=== PATIENT | male | born 1970 | race Caucasian/White ===

== ENCOUNTER → 2016-10-17 | Outpatient (CLI) | payer MEDICAID ==
[2016-10-17 11:10] LABS: CH 30.1; CHCM 34.8; HCT 42.9 % (39.0-53.0); HGB 14.4 gm/dL (13.0-17.5); MCH 29.2 pg (25.0-35.0); MCHC 33.6 g/dL (31.0-37.0); MCV 86.9 fL (80.0-100.0); Mean Platelet Volume 6.8; RBC 4.93 m/uL (4.30-5.90); RDW 13.6 % (11.5-15.5)
[2016-10-17 11:22] LABS: ALT 46 U/L (21-72); AST 26 U/L (17-59); Alkaline Phosphatase 64 U/L (38-126); Anion Gap 12 mmol/L; Blood Urea Nitrogen 9 mg/dL (9-20); Carbon Dioxide 29 mmol/L (22-30); Chloride 103 mmol/L (98-107); Cholesterol 157 mg/dL (<200); Glucose 147 mg/dL (74-99); HDL Cholesterol 42 mg/dL (40-60); Non-African American GFR(MDRD) >60 (>60 ml/min/1.73 sqM); Potassium 4.5 mmol/L (3.5-5.1); Sodium 144 mmol/L (137-145); Total Bilirubin 0.6 mg/dL (0.2-1.3); Total Protein 6.9 g/dL (6.3-8.2); Triglycerides 131 mg/dL (<150)
[2016-10-17 14:18] LABS: Hemoglobin A1C 6.5 % (4.2-6.1)
== END | disposition home or self-care (01) ==
LOC: LABWHC1 10:48
PROVIDERS: ATTEND Internal Medicine
DX: E11.65 Type 2 diabetes mellitus with hyperglycemia (principal)
CPT/HCPCS: 36415; 80053; 80061; 83036; 84403; 84439; 84443; 85027

== ENCOUNTER → 2017-03-25 | Outpatient (CLI) | payer MEDICAID ==
[2017-03-25 09:42] LABS: CH 30.8; CHCM 34.9; HCT 44.2 % (39.0-53.0); HDW 2.89; HGB 14.9 gm/dL (13.0-17.5); MCH 29.9 pg (25.0-35.0); MCHC 33.7 g/dL (31.0-37.0); MCV 88.8 fL (80.0-100.0); Mean Platelet Volume 6.5; RBC 4.98 m/uL (4.30-5.90); RDW 13.7 % (11.5-15.5); WBC 8.5 k/uL (3.8-10.6)
[2017-03-25 09:58] LABS: ALT 39 U/L (21-72); AST 21 U/L (17-59); Alkaline Phosphatase 58 U/L (38-126); Anion Gap 12 mmol/L; Blood Urea Nitrogen 17 mg/dL (9-20); Calcium 9.3 mg/dL (8.4-10.2); Carbon Dioxide 24 mmol/L (22-30); Chloride 105 mmol/L (98-107); Cholesterol 178 mg/dL (<200); Glucose 186 mg/dL (74-99); HDL Cholesterol 35 mg/dL (40-60); Non-African American GFR(MDRD) >60 (>60 ml/min/1.73 sqM); Potassium 4.3 mmol/L (3.5-5.1); Sodium 141 mmol/L (137-145); Total Bilirubin 0.6 mg/dL (0.2-1.3); Total Protein 7.2 g/dL (6.3-8.2); Triglycerides 171 mg/dL (<150)
[2017-03-25 13:23] LABS: Hemoglobin A1C 8.3 % (4.2-6.1)
== END | disposition home or self-care (01) ==
LOC: LABWHC1 09:10
PROVIDERS: ATTEND Internal Medicine
DX: E11.9 Type 2 diabetes mellitus without complications (principal); Z13.220 Encounter for screening for lipoid disorders; Z13.29 Encounter for screening for other suspected endocrine disorder
CPT/HCPCS: 36415; 80053; 80061; 83036; 84439; 84443; 85027

== ENCOUNTER → 2018-06-03 | Outpatient (CLI) | payer MEDICAID ==
--- NOTE | 2018-06-03 12:15 | XR ---
EXAMINATION TYPE: XR chest 2V DATE OF EXAM: 06/03/2018 COMPARISON: NONE HISTORY: Left anterior chest pain TECHNIQUE: Frontal and lateral views of the chest are obtained. FINDINGS: There is no focal air space opacity, pleural effusion, or pneumothorax seen. The cardiac silhouette size is upper limits of normal. The osseous structures are intact. IMPRESSION: No acute process identified.
== END | disposition home or self-care (01) ==
LOC: RADXRYALE 11:47
PROVIDERS: ATTEND Physician Assistant Medical
DX: R07.9 Chest pain, unspecified (principal)
CPT/HCPCS: 71046

== ENCOUNTER → 2018-09-09 | Outpatient (CLI) | payer MEDICAID ==
--- NOTE | 2018-09-09 13:19 | US ---
EXAMINATION TYPE: US scrotum with doppler. Grayscale and color Doppler Duplex imaging performed of t [place] scrotum. DATE OF EXAM: 09/09/2018 COMPARISON: NONE CLINICAL HISTORY: Disorder of male genital organs N50.9. Left testicular palpable- noticed it saturday and states it has increased in size and has become harder. No injury. Vasectomy january 2016. EXAM MEASUREMENTS: TESTICLES: Right Testicle: 4.6 x 3.2 x 2.8 cm Left Testicle: 3.7 x 3.5 x 2.6 cm EPIDIDYMIS HEAD: Right Epididymis: 1.0 x 0.8 x 0.7 cm Left Epididymis: 1.2 x 1.1 x 0.8 cm Doppler performed to assess for testicular vascularity; good bilateral color flow and waveforms are s een. There is no evidence of testicular torsion. Presence of hydroceles: small bilaterally Presence of varicoceles: lateral to left testicle, valsalva performed Area of palpable targeted- lateral to left testicle and extra scrotal in location Nonvascular irregu lar shaped heterogenous lesion seen - 2.3 x 1.5 x 1.3 cm. There is associated skin thickening. The fi nding is of uncertain etiology and may reflect infected sebaceous cyst with the associated cellulitis . Correlate clinically. Short-term follow-up may be of value. IMPRESSION: 1. No intratesticular lesion identified. 2. Extratesticular extra scrotal lesion to the left of midline with skin thickening may reflect an in fected sebaceous cyst with cellulitis. Correlate clinically and consider short-term progress study.
== END | disposition home or self-care (01) ==
LOC: RADUSWWP 12:00
PROVIDERS: ATTEND Family Medicine
DX: N50.89 Other specified disorders of the male genital organs (principal)
CPT/HCPCS: 76870; 93975

== ENCOUNTER 2018-09-11 09:23 | Emergency (ER) | payer MEDICAID ==
[2018-09-11] MEDS ORDERED: SODIUM CHLORIDE 0.9% 1,000 ML IV ONE (10:23)
[2018-09-11] MEDS ORDERED: PIPERACILLIN-TAZOBACTAM 3.375 GM in SODIUM CHLORIDE 0.9% 100 ML IVPB STA (10:25)
[2018-09-11] MEDS ORDERED: MORPHINE SULFATE 4 MG/ML SYRINGE IVP STA (10:25)
[2018-09-11] MEDS ORDERED: KETOROLAC 30 MG/ML 1 ML VIAL IVP STA (10:25)
[2018-09-11] MEDS ORDERED: SODIUM CHLORIDE 0.9% 1,000 ML IV SCH (10:30)
--- NOTE | 2018-09-11 11:12 | ED ---
Skin/Abscess/FB HPI - General Chief complaint: Skin/Abscess/Foreign Body Stated complaint: cyst-sent by Time Seen by Provider: 09/11/18 10:04 Source: patient, RN notes reviewed, old records reviewed Mode of arrival: ambulatory - History of Present Illness Initial comments: Patient is a 48-year-old male who presents emergency murmurs today with chief complaint of left testicular pain and swelling. Patient reports that he was sinus with a scrotal abscess and started on Levaquin by PCP 2 days ago. He reports that after 2 days of antibiotics his pain is persisting and becoming worse. Patient states he's had fevers and chills. He reports that he is a diabetic. She reports that he did have a vasectomy by Dr. Ott. He states that he did have some dysuria today. Patient states that there is no drainage of the abscess. He reports that he believes the area is becoming enlarged and worse. She reports pain with ambulation. - Related Data Home Medications Medication Instructions Recorded Confirmed Atorvastatin Calcium [Lipitor] 40 mg PO DAILY 09/11/18 09/11/18 Levofloxacin [Levaquin] 500 mg PO DAILY 09/11/18 09/11/18 Omeprazole 20 mg PO HS 09/11/18 09/11/18 Tadalafil [Cialis] 5 mg PO HS 09/11/18 09/11/18 metFORMIN HCL 1,000 mg PO BID 09/11/18 09/11/18 Previous Rx's Medication Instructions Recorded Acetaminophen-Codeine 300-30mg 1 tab PO Q4H PRN 3 Days #18 tablet 09/11/18 [Tylenol w/codeine #3] Sulfamethoxazole/Trimethoprim 2 each PO BID #40 tablet 09/11/18 [Bactrim DS 800-160 mg] Allergies Allergy/AdvReac Type Severity Reaction Status Date / Time No Known Allergies Allergy Verified 09/11/18 10:09 Review of Systems ROS Statement: Those systems with pertinent positive or pertinent negative responses have been documented in the HPI. ROS Other: All systems not noted in ROS Statement are negative. Past Medical History Past Medical History: Diabetes Mellitus History of Any Multi-Drug Resistant Organisms: None Reported Additional Past Surgical History / Comment(s): Vasectomy 2016 Past Psychological History: No Psychological Hx Reported Smoking Status: Current every day smoker Past Alcohol Use History: None Reported Past Drug Use History: None Reported General Exam - General Exam Comments Initial Comments: Patient's 48-year-old male. Alert and oriented. Patient appears in no significant distress. General appearance: alert, in no apparent distress Head exam: Present: atraumatic, normocephalic, normal inspection Eye exam: Present: normal appearance, PERRL, EOMI. Absent: scleral icterus, conjunctival injection, periorbital swelling ENT exam: Present: normal exam, mucous membranes moist Neck exam: Present: normal inspection. Absent: tenderness, meningismus, lymphadenopathy Respiratory exam: Present: normal lung sounds bilaterally. Absent: respiratory distress, wheezes, rales, rhonchi, stridor Cardiovascular Exam: Present: regular rate, normal rhythm, normal heart sounds. Absent: systolic murmur, diastolic murmur, rubs, gallop, clicks GI/Abdominal exam: Present: soft, normal bowel sounds. Absent: distended, tenderness, guarding, rebound, rigid exam: Present: testicular tenderness (Patient has left testicular tenderness , and swelling noted. There appears to be a 4 cm x 3 cm deep abscess. No superficial pustule at this time. ), scrotal swelling, circumcision. Absent: normal inspection, urethral discharge, vertical testicular lie Extremities exam: Present: normal inspection, full ROM, normal capillary refill. Absent: tenderness, pedal edema, joint swelling, calf tenderness Back exam: Present: normal inspection Neurological exam: Present: alert, oriented X3, CN II-XII intact Psychiatric exam: Present: normal affect, normal mood Skin exam: Present: warm, dry, intact, normal color. Absent: rash Course Vital Signs 09/11/18 09/11/18 09:33 12:32 Temperature 98 F 98 F Pulse Rate 104 H 80 Respiratory 18 18 Rate Blood Pressure 135/83 131/85 O2 Sat by Pulse 99 98 Oximetry Medical Decision Making - Medical Decision Making Patient is a 48-year-old male presents to the emergency department today which equally of left-sided scrotal swelling. Worse for the past 4 days. Patient at this time has normal white blood cell count. Normal lactic acid. No fever at this time dictated Tylenol. This time Patient stating that he felt outpatient treatment with by mouth Levaquin. At this time he did have a CT. There is no evidence of necrotizing infection. No air within the scrotum. Case discussed Dr. BOWIE. Dr. Hwang discussed case with Dr. Kuo the on-call urologist. He recommended that he could follow-up with him in the outpatient for incision and drainage of 4:00 today. Patient agrees to this. Patient will be discharged with a dose of [place] Tylenol 3 starter pack. Discussed that he should follow- up on 4:[address] Kuo's office. - Lab Data Result diagrams: 09/11/18 10:34 09/11/18 10:34 Lab Results 09/11/18 09/11/18 09/11/18 Range/Units 10:34 10:34 10:34 WBC 8.7 (3.8-10.6) k/uL RBC 5.39 (4.30-5.90) m/uL Hgb 15.5 (13.0-17.5) gm/dL Hct 45.6 (39.0-53.0) % MCV 84.6 (80.0-100.0) fL MCH 28.7 (25.0-35.0) pg MCHC 33.9 (31.0-37.0) g/dL RDW 13.4 (11.5-15.5) % Plt Count 198 (150-450) k/uL Neutrophils % 80 % Lymphocytes % 12 % Monocytes % 5 % Eosinophils % 2 % Basophils % 0 % Neutrophils # 7.0 (1.3-7.7) k/uL Lymphocytes # 1.0 (1.0-4.8) k/uL Monocytes # 0.4 (0-1.0) k/uL Eosinophils # 0.2 (0-0.7) k/uL Basophils # 0.0 (0-0.2) k/uL Sodium 136 L (137-145) mmol/L Potassium 4.4 (3.5-5.1) mmol/L Chloride 99 (98-107) mmol/L Carbon Dioxide 26 (22-30) mmol/L Anion Gap 11 mmol/L BUN 11 (9-20) mg/dL Creatinine 0.79 (0.66-1.25) mg/dL Est GFR (CKD-EPI)AfAm >90 (>60 ml/min/1.73 sqM) Est GFR (CKD-EPI)NonAf >90 (>60 ml/min/1.73 sqM) Glucose 331 H (74-99) mg/dL Plasma Lactic Acid Amol 1.3 (0.7-2.0) mmol/L Calcium 9.2 (8.4-10.2) mg/dL Urine Color Urine Appearance (Clear) Urine pH (5.0-8.0) Ur Specific [place] (1.001-1.035) Urine Protein (Negative) Urine Glucose (UA) (Negative) Urine Ketones (Negative) Urine Blood (Negative) Urine Nitrite (Negative) Urine Bilirubin (Negative) Urine Urobilinogen (<2.0) mg/dL Ur Leukocyte Esterase (Negative) 09/11/18 Range/Units 11:00 WBC (3.8-10.6) k/uL RBC (4.30-5.90) m/uL Hgb (13.0-17.5) gm/dL Hct (39.0-53.0) % MCV (80.0-100.0) fL MCH (25.0-35.0) pg MCHC (31.0-37.0) g/dL RDW (11.5-15.5) % Plt Count (150-450) k/uL Neutrophils % % Lymphocytes % % Monocytes % % Eosinophils % % Basophils % % Neutrophils # (1.3-7.7) k/uL Lymphocytes # (1.0-4.8) k/uL Monocytes # (0-1.0) k/uL Eosinophils # (0-0.7) k/uL Basophils # (0-0.2) k/uL Sodium (137-145) mmol/L Potassium (3.5-5.1) mmol/L Chloride (98-107) mmol/L Carbon Dioxide (22-30) mmol/L Anion Gap mmol/L BUN (9-20) mg/dL Creatinine (0.66-1.25) mg/dL Est GFR (CKD-EPI)AfAm (>60 ml/min/1.73 sqM) Est GFR (CKD-EPI)NonAf (>60 ml/min/1.73 sqM) Glucose (74-99) mg/dL Plasma Lactic Acid Amol (0.7-2.0) mmol/L Calcium (8.4-10.2) mg/dL Urine Color Yellow Urine Appearance Clear (Clear) Urine pH 6.0 (5.0-8.0) Ur Specific [place] 1.016 (1.001-1.035) Urine Protein Negative (Negative) Urine Glucose (UA) 4+ H (Negative) Urine Ketones 1+ H (Negative) Urine Blood Negative (Negative) Urine Nitrite Negative (Negative) Urine Bilirubin Negative (Negative) Urine Urobilinogen <2.0 (<2.0) mg/dL Ur Leukocyte Esterase Negative (Negative) - Radiology Data Radiology results: report reviewed No peritoneal subcutaneous or intrapelvic air suggesting necrotic fasciitis. Partial visual scrotal wall thickening and next or testicular fluid collection corresponding with suspected left scrotal abscess that is better evaluated with ultrasound. Mildly enlarged left superficial and when the lymph node is likely reactive. Disposition Clinical Impression: Scrotal abscess, History of diabetes mellitus Disposition: HOME SELF-CARE Condition: Stable Instructions: Abscess (ED) Additional Instructions: Patient advised to go to Dr. Brizuela office at 4:00. Patient states the medication as prescribed. Return to emergency department if any alarming signs or symptoms occur. Prescriptions: Acetaminophen-Codeine 300-30mg [Tylenol w/codeine #3] 1 tab PO Q4H PRN 3 Days # 18 tablet PRN Reason: Pain Sulfamethoxazole/Trimethoprim [Bactrim DS 800-160 mg] 2 each PO BID #40 tablet Is patient prescribed a controlled substance at d/c from ED?: Yes When asked, does pt state using other controlled substances?: No If prescribed controlled substance>3 days was MAPS reviewed?: Prescribed <3 Days If opioid is for acute pain is fill amount 7 days or less?: Yes If Rx opioid, was Start Talking consent form obtained?: Yes Referrals: Lopez Garay DO [Primary Care Provider] - 1-2 days Alejandro Jansen MD [STAFF PHYSICIAN] - 1-2 days Time of Disposition: 13:00
[2018-09-11 11:22] LABS: Basophils % (A) 0 %; Eosinophils # (A) 0.2 k/uL (0-0.7); Eosinophils % (A) 2 %; HCT 45.6 % (39.0-53.0); HGB 15.5 gm/dL (13.0-17.5); Lymphocytes % (A) 12 %; MCH 28.7 pg (25.0-35.0); MCHC 33.9 g/dL (31.0-37.0); MCV 84.6 fL (80.0-100.0); Mean Platelet Volume 6.1; Monocytes # (A) 0.4 k/uL (0-1.0); Monocytes % (A) 5 %; Neutrophils % (A) 80 %; Platelet Count 198 k/uL (150-450); RBC 5.39 m/uL (4.30-5.90); RDW 13.4 % (11.5-15.5); WBC 8.7 k/uL (3.8-10.6)
[2018-09-11 11:24] LABS: Appearance,Urine Clear (Clear); Bilirubin,Urine Negative (Negative); Blood,Urine Negative (Negative); Color,Urine Yellow; Glucose,Urine (UA) 4+ (Negative); Ketones,Urine 1+ (Negative); Leukocyte Esterase,Urine Negative (Negative); Nitrite,Urine Negative (Negative); Protein,Urine Negative (Negative); Specific Gravity,Urine 1.016 (1.001-1.035); Urobilinogen,Urine <2.0 mg/dL (<2.0)
[2018-09-11 11:25] LABS: Anion Gap 11 mmol/L; Blood Urea Nitrogen 11 mg/dL (9-20); Calcium 9.2 mg/dL (8.4-10.2); Carbon Dioxide 26 mmol/L (22-30); Chloride 99 mmol/L (98-107); Glucose 331 mg/dL (74-99); Potassium 4.4 mmol/L (3.5-5.1); Sodium 136 mmol/L (137-145)
--- NOTE | 2018-09-11 12:26 | CT ---
EXAMINATION TYPE: CT pelvis w con DATE OF EXAM: 09/11/2018 COMPARISON: Scrotal ultrasound dated 09/09/2018 HISTORY: Scrotal abscess CT DLP: 687.9 mGycm Automated exposure control for dose reduction was used. CONTRAST: Performed with IV Contrast, patient injected with 100 ml mL of Isovue 300. FINDINGS: Bowel is nondilated. Visualized portions of the inferior liver, spleen, and kidneys are unremarkable. Appendix is air-filled and within normal limits. Osseous structures appear intact. Few nonenlarged p eriaortic lymph nodes are seen. Mild atherosclerosis is present of the abdominal aorta and its branch es. There is a mildly enlarged 1.1 cm short axis left superficial inguinal lymph node. No air is seen within the peritoneum or pelvis. Prostate gland is heterogenous but nonenlarged. Skin thickening of the scrotum is seen with partial visualization of an extratesticular fluid collection w ith rim enhancement representing the known abscess. Internal fluid component on image 71 measures geno roximately 2.6 cm in anterior posterior dimension. IMPRESSION: 1. NO PERITONEAL, SUBCUTANEOUS OR INTRAPELVIC AIR TO SUGGEST NECROTIZING FASCIITIS. 2. PARTIALLY VISUALIZED SCROTAL WALL THICKENING AND EXTRATESTICULAR FLUID COLLECTION CORRESPONDING TO THE SUSPECTED LEFT SCROTAL ABSCESS THAT IS BETTER EVALUATED WITH ULTRASOUND. 3. MILDLY ENLARGED SOLITARY LEFT SUPERFICIAL INGUINAL LYMPH NODE IS LIKELY REACTIVE.
[2018-09-11] MEDS ORDERED: ACET/COD 300 MG/30 MG STARTER PACK 6 TAB BTL PO STA (13:05)
[2018-09-11 14:26] VITALS: BP 123/73; PULSE 70; RESP 16; TEMP 98.3
== END 2018-09-11 14:26 | disposition home or self-care (01) ==
LOC: EC 09:23
DX: N49.2 Inflammatory disorders of scrotum (principal); E11.9 Type 2 diabetes mellitus without complications; F17.200 Nicotine dependence, unspecified, uncomplicated; Z79.84 Long term (current) use of oral hypoglycemic drugs; Z79.899 Other long term (current) drug therapy; Z98.52 Vasectomy status
CPT/HCPCS: 36415; 72193; 80048; 81003; 83605; 85025; 87040; 96365; 96366; 96375; 99284

== ENCOUNTER 2019-09-24 17:29 | Inpatient (IN) | payer MEDICAID ==
[2019-09-24] MEDS ORDERED: ONDANSETRON 4 MG/2 ML VIAL IVP STA (18:00)
[2019-09-24] MEDS ORDERED: PANTOPRAZOLE 40 MG/10 ML VIAL IVP STA (18:00)
[2019-09-24] MEDS ORDERED: SODIUM CHLORIDE 0.9% 1,000 ML IV STA (18:00)
[2019-09-24 18:49] LABS: Basophils % (A) 0 %; Eosinophils # (A) 0.1 k/uL (0-0.7); Eosinophils % (A) 2 %; HCT 45.1 % (39.0-53.0); HGB 15.6 gm/dL (13.0-17.5); Lymphocytes # (A) 1.2 k/uL (1.0-4.8); Lymphocytes % (A) 15 %; MCHC 34.7 g/dL (31.0-37.0); MCV 83.5 fL (80.0-100.0); Mean Platelet Volume 6.6; Monocytes # (A) 0.4 k/uL (0-1.0); Monocytes % (A) 5 %; Neutrophils # (A) 6.2 k/uL (1.3-7.7); Neutrophils % (A) 77 %; Platelet Count 203 k/uL (150-450); RDW 13.5 % (11.5-15.5); WBC 8.1 k/uL (3.8-10.6)
[2019-09-24 18:54] LABS: INR 0.9 (<1.2); Partial Thromboplastin Time 23.9 sec (22.0-30.0); Prothrombin Time 9.9 sec (9.0-12.0)
--- NOTE | 2019-09-24 18:54 | ED ---
Abdominal Pain HPI - General Source: patient Mode of arrival: ambulatory Limitations: no limitations <Nelli Contreras - Last Filed: 09/24/19 18:51> <Jaylan Mcadams - Last Filed: 09/24/19 22:21> - General Chief Complaint: Abdominal Pain Stated Complaint: Abd pain Time Seen by Provider: 09/24/19 17:43 - History of Present Illness Initial Comments: Patient is a 49-year-old male, with past medical history of diabetes and hypertension, presenting to the emergency department complaints of abdominal pain since yesterday. Patient describes the pain as achy, pressure in the mid abdomen, left side of abdomen. Patient does admit to mild nausea, no vomiting, no diarrhea. Patient denies previous abdominal surgeries. Patient had a bowel movement this morning and was normal. Patient states the pain has been increasing over today so decided to come in. Patient admits when he lays down and the pain improves. Patient states when he was up and working today the pain intensified. Patient also has been belching a lot today. Patient has not tried to take anything for this. Patient has no other complaints at this time. Upon arrival to the ER, his vital signs are stable. (Nelli Contreras) - Related Data Home Medications Medication Instructions Recorded Confirmed Atorvastatin Calcium [Lipitor] 40 mg PO DAILY 09/11/18 09/11/18 Levofloxacin [Levaquin] 500 mg PO DAILY 09/11/18 09/11/18 Omeprazole 20 mg PO HS 09/11/18 09/11/18 Tadalafil [Cialis] 5 mg PO HS 09/11/18 09/11/18 metFORMIN HCL 1,000 mg PO BID 09/11/18 09/11/18 Previous Rx's Medication Instructions Recorded Acetaminophen-Codeine 300-30mg 1 tab PO Q4H PRN 3 Days #18 tablet 09/11/18 [Tylenol w/codeine #3] Sulfamethoxazole/Trimethoprim 2 each PO BID #40 tablet 09/11/18 [Bactrim DS 800-160 mg] Allergies Allergy/AdvReac Type Severity Reaction Status Date / Time No Known Allergies Allergy Verified 09/24/19 17:36 Review of Systems ROS Other: All systems not noted in ROS Statement are negative. <Nelli Contreras - Last Filed: 09/24/19 18:51> ROS Other: All systems not noted in ROS Statement are negative. <Jaylan Mcadams - Last Filed: 09/24/19 22:21> ROS Statement: Those systems with pertinent positive or pertinent negative responses have been documented in the HPI. Past Medical History Past Medical History: Diabetes Mellitus History of Any Multi-Drug Resistant Organisms: None Reported Additional Past Surgical History / Comment(s): Vasectomy 2016 Past Psychological History: No Psychological Hx Reported Smoking Status: Current every day smoker Past Alcohol Use History: None Reported Past Drug Use History: None Reported <Nelli Contreras - Last Filed: 09/24/19 18:51> General Exam Limitations: no limitations <Nelli Contreras - Last Filed: 09/24/19 18:51> - General Exam Comments Initial Comments: GENERAL: Well-appearing, well-nourished and in no acute distress. HEAD: Atraumatic, normocephalic. EYES: Pupils equal round and reactive to light, extraocular movements intact, sclera anicteric, conjunctiva are normal. ENT: TMs normal, nares patent, oropharynx clear without exudates. Moist mucous m embranes. NECK: Normal range of motion, supple without lymphadenopathy or JVD. LUNGS: Breath sounds clear to auscultation bilaterally and equal. No wheezes rales or rhonchi. HEART: Regular rate and rhythm without murmurs, rubs or gallops. ABDOMEN: Tender to palpation in the epigastric and left side of abdomen. Soft, normoactive bowel sounds. No guarding, no rebound. No masses appreciated. : Deferred EXTREMITIES: Normal range of motion, no pitting or edema. No clubbing or cyanosis. NEUROLOGICAL: Normal speech, normal gait. PSYCH: Normal mood, normal affect. SKIN: Warm, Dry, normal turgor, no rashes or lesions noted. (Nelli Contreras) Course <Jaylan Mcadams - Last Filed: 09/24/19 22:21> Vital Signs 09/24/19 09/24/19 09/24/19 17:34 17:36 17:44 Temperature 97.6 F Pulse Rate 99 Respiratory 20 20 Rate Blood Pressure 137/85 137/85 O2 Sat by Pulse 98 98 95 Oximetry 09/24/19 09/24/19 09/24/19 17:50 18:00 18:10 Temperature Pulse Rate Respiratory Rate Blood Pressure 125/88 125/88 104/81 O2 Sat by Pulse 95 95 96 Oximetry 09/24/19 09/24/19 09/24/19 18:20 18:30 18:36 Temperature Pulse Rate Respiratory 20 Rate Blood Pressure 104/81 104/81 O2 Sat by Pulse 96 96 98 Oximetry 09/24/19 09/24/19 18:40 18:50 Temperature Pulse Rate Respiratory Rate Blood Pressure 119/85 119/85 O2 Sat by Pulse 97 95 Oximetry - Reevaluation(s) Reevaluation #1: 09/24/19 22:20 Medical record is physical (Jaylan Mcadams) Reevaluation #2: 09/24/19 22:20 Patient with known appetite not eating no bowel movements here and not passing far (Jaylan Mcadams) - Consultations Consultation #1: Spoke with Dr. Rome who will admit patient (Jaylan Mcadams) Medical Decision Making - Lab Data Result diagrams: 09/24/19 18:19 <Nelli Contreras - Last Filed: 09/24/19 18:51> - Lab Data Result diagrams: 09/24/19 18:19 09/24/19 18:19 - Radiology Data Radiology results: report reviewed (CT pelvis is positive for small bowel obstruction), image reviewed <Jaylan Mcadams - Last Filed: 09/24/19 22:21> - Medical Decision Making Patient is a 49-year-old male presenting with mid and left sided abdominal pain since yesterday. Vital signs are stable. (Nelli Contreras) Auty [facility] male date ER for will be admitted for ileus versus small bowel structure. (Jaylan Mcadams) - Lab Data Lab Results 09/24/19 09/24/19 09/24/19 Range/Units 18:19 18:19 18:19 WBC 8.1 (3.8-10.6) k/uL RBC 5.40 (4.30-5.90) m/uL Hgb 15.6 (13.0-17.5) gm/dL Hct 45.1 (39.0-53.0) % MCV 83.5 (80.0-100.0) fL MCH 29.0 (25.0-35.0) pg MCHC 34.7 (31.0-37.0) g/dL RDW 13.5 (11.5-15.5) % Plt Count 203 (150-450) k/uL Neutrophils % 77 % Lymphocytes % 15 % Monocytes % 5 % Eosinophils % 2 % Basophils % 0 % Neutrophils # 6.2 (1.3-7.7) k/uL Lymphocytes # 1.2 (1.0-4.8) k/uL Monocytes # 0.4 (0-1.0) k/uL Eosinophils # 0.1 (0-0.7) k/uL Basophils # 0.0 (0-0.2) k/uL PT 9.9 (9.0-12.0) sec INR 0.9 (<1.2) APTT 23.9 (22.0-30.0) sec Sodium 138 (137-145) mmol/L Potassium 4.7 (3.5-5.1) mmol/L Chloride 102 (98-107) mmol/L Carbon Dioxide 25 (22-30) mmol/L Anion Gap 11 mmol/L BUN 13 (9-20) mg/dL Creatinine 0.99 (0.66-1.25) mg/dL Est GFR (CKD-EPI)AfAm >90 (>60 ml/min/1.73 sqM) Est GFR (CKD-EPI)NonAf >90 (>60 ml/min/1.73 sqM) Glucose 202 H (74-99) mg/dL Calcium 10.0 (8.4-10.2) mg/dL Total Bilirubin 0.8 (0.2-1.3) mg/dL AST 26 (17-59) U/L ALT 35 (4-49) U/L Alkaline Phosphatase 80 (38-126) U/L Total Protein 7.9 (6.3-8.2) g/dL Albumin 4.9 (3.5-5.0) g/dL Amylase 76 (30-110) U/L Lipase 194 (23-300) U/L Disposition <Nelli Contreras - Last Filed: 09/24/19 18:51> Is patient prescribed a controlled substance at d/c from ED?: No <Jaylan Mcadams - Last Filed: 09/24/19 22:21> Clinical Impression: Abdominal pain, Small bowel obstruction Disposition: ADMITTED IP TO THIS HOSP Condition: Fair Referrals: Lopez Garay DO [Primary Care Provider] - 1-2 days
[2019-09-24 18:59] LABS: ALT 35 U/L (4-49); AST 26 U/L (17-59); African American GFR (CKD) >90 (>60 ml/min/1.73 sqM); Albumin 4.9 g/dL (3.5-5.0); Alkaline Phosphatase 80 U/L (38-126); Amylase 76 U/L (30-110); Anion Gap 11 mmol/L; Blood Urea Nitrogen 13 mg/dL (9-20); Carbon Dioxide 25 mmol/L (22-30); Chloride 102 mmol/L (98-107); Glucose 202 mg/dL (74-99); Non-African American GFR(CKD) >90 (>60 ml/min/1.73 sqM); Potassium 4.7 mmol/L (3.5-5.1); Sodium 138 mmol/L (137-145); Total Bilirubin 0.8 mg/dL (0.2-1.3); Total Protein 7.9 g/dL (6.3-8.2)
--- NOTE | 2019-09-24 20:06 | XR ---
EXAMINATION TYPE: XR KUB DATE OF EXAM: 09/24/2019 COMPARISON: NONE HISTORY: Abdominal pain TECHNIQUE: 2 views upright FINDINGS: There are some intestinal fluid levels. These are predominantly in the small bowel. There i s no sign of free air. Lung bases are clear. There are no pathologic calcifications. There is some ga s down to the rectum. IMPRESSION: Numerous small bowel fluid levels suggestive of ileus or partial mechanical obstruction.
--- NOTE | 2019-09-24 21:43 | CT ---
EXAMINATION TYPE: CT abdomen pelvis w con DATE OF EXAM: 09/24/2019 COMPARISON: None HISTORY: Abdomen pain, possible bowel obstruction. CT DLP: 1157.2 mGycm Automated exposure control for dose reduction was used. CONTRAST: Performed with IV Contrast, patient injected with 100 mL of Isovue 300. Lung bases are clear. There is no pleural effusion. Heart size is normal. Liver spleen pancreas gallbladder stomach appear normal. Bile ducts are not dilated. There is no adrenal mass. Kidneys show satisfactory contrast opacification. There is no hydronephrosi s. Ureters are not dilated. Delayed images show normal renal excretion. There is no retroperitoneal a denopathy. Bladder distends smoothly. There is no inguinal hernia. There is no free fluid in the pelv is. There are fluid-filled mildly distended loops of small bowel. Small bowel is dilated up to 3.5 cm. Th ere is no mesenteric edema. There is no ascites or free air. Appendix is not definitely seen. There i s no sign of thickened appendix. There is no transition point. Distal ileum is not dilated. Lumbar ve rtebra have normal alignment. Posterior elements are intact. Bony pelvis is intact. IMPRESSION: There are some dilated fluid-filled loops of proximal small bowel suggestive of ileus or partial mech anical obstruction. No transition point identified.
[2019-09-25] MEDS ORDERED: SODIUM CHLORIDE 0.9% 1,000 ML IV ONE (00:02)
[2019-09-25] MEDS ORDERED: ONDANSETRON 4 MG/2 ML VIAL IVP PRN (00:02)
[2019-09-25 01:05] LABS: Appearance,Urine Clear (Clear); Bilirubin,Urine Negative (Negative); Blood,Urine Negative (Negative); Color,Urine Yellow; Glucose,Urine (UA) 4+ (Negative); Ketones,Urine Negative (Negative); Leukocyte Esterase,Urine Negative (Negative); Nitrite,Urine Negative (Negative); Protein,Urine Trace (Negative); Urobilinogen,Urine <2.0 mg/dL (<2.0)
[2019-09-25 01:12] LABS: Specific Gravity,Urine >1.050 (1.001-1.035)
[2019-09-25 07:26] LABS: Glucose,Whole Blood 156 mg/dL (75-99)
[2019-09-25] MEDS: PANTOPRAZOLE 40 MG/10 ML VIAL IVP SCH (07:42)
[2019-09-25 11:17] LABS: Glucose,Whole Blood 135 mg/dL (75-99)
--- NOTE | 2019-09-25 12:44 | P.GSCN ---
<Lorrie Emmanuel A - Last Filed: 09/25/19 12:40> History of Present Illness Consult date: 09/25/19 Reason for Consult: SBO Requesting physician: Jaylan Mcadams History of present illness: CHIEF COMPLAINT: abdominal pain HISTORY OF PRESENT ILLNESS: 49-year-old male who presented to urgent with a chief complaint of abdominal pain. Patient reports he has been having abdominal pain near the umbilicus for the last 2 days that worsened in intensity so he decided to come to the emergency room for evaluation. Patient reports some mild nausea over the past 2 days but no vomiting. He states his nausea has now resolved. He reports having a normal formed bowel movement yesterday morning. He reports a loose bowel movement in the middle the night. He is passing flatus this morning. Patient denies any previous abdominal surgeries. Denies any previous gastrointestinal conditions or family history of GI conditions. He reports he is a type II diabetic and was started on Januvia last week. PAST MEDICAL HISTORY: See list. PAST SURGICAL HISTORY: See list. SOCIAL HISTORY: No illicit drug use. REVIEW OF SYSTEMS: CONSTITUTIONAL: Denies fever or chills. HEENT: Denies blurred vision, vision changes, or eye pain. Denies hemoptysis CARDIOVASCULAR: Denies chest pain or pressure. RESPIRATORY: No shortness of breath. GASTROINTESTINAL: Refer to HPI for pertinent findings HEMATOLOGIC: Denies bleeding disorders. GENITOURINARY: Denies any blood in urine. SKIN: Denies pruitis. Denies rash. PHYSICAL EXAM: VITAL SIGNS: Reviewed. GENERAL: Well-developed in no acute distress. HEENT: No sclera icterus. Extraocular movements grossly intact. Moist buccal mucosa. Head is atraumatic, normocephalic. ABDOMEN: Soft. Nondistended. Nontender. NEUROLOGIC: Alert and oriented. Cranial nerves II through XII grossly intact. LABORATORY DATA: WBC 8.1. Hemoglobin 15.6. Platelet count 203. IMAGING: CT abdomen and pelvis: Small bowel dilated to 3.5 cm. Dilated fluid-filled loops of proximal small bowel suggestive of ileus or partial mechanical structure. No transition point identified. ASSESSMENT: 1. Abdominal pain, possible ileus PLAN: Patient symptoms have completely resolved. Begin clear liquid diet. Advance as tolerated. No surgical intervention recommended. Nurse practitioner note has been reviewed by physician. Signing provider agrees with the documented findings, assessment, and plan of care. Past Medical History Past Medical History: Diabetes Mellitus History of Any Multi-Drug Resistant Organisms: None Reported Additional Past Surgical History / Comment(s): Vasectomy 2016 Past Psychological History: No Psychological Hx Reported Smoking Status: Former smoker Past Alcohol Use History: None Reported Past Drug Use History: None Reported Medications and Allergies Home Medications Medication Instructions Recorded Confirmed Type Atorvastatin Calcium [Lipitor] 40 mg PO DAILY 09/11/18 09/24/19 History Omeprazole 20 mg PO HS 09/11/18 09/24/19 History Tadalafil [Cialis] 5 mg PO HS 09/11/18 09/24/19 History metFORMIN HCL 1,000 mg PO BID 09/11/18 09/24/19 History Empagliflozin [Jardiance] 25 mg PO DAILY 09/24/19 09/24/19 History Insulin Glargine,Hum.rec.anlog 32 units SQ HS 09/24/19 09/24/19 History [Toujeo Solostar] Lisinopril [Zestril] 2.5 mg PO DAILY 09/24/19 09/24/19 History Allergies Allergy/AdvReac Type Severity Reaction Status Date / Time No Known Allergies Allergy Verified 09/24/19 22:42 Surgical - Exam Vital Signs Temp Pulse Resp BP Pulse Ox 97.6 F 99 20 137/85 98 09/24/19 17:34 09/24/19 17:34 09/24/19 17:34 09/24/19 17:34 09/24/19 17:34 Results - Labs 09/24/19 18:19 09/24/19 18:19 Abnormal Lab Results - Last 24 Hours (Table) 09/24/19 09/25/19 09/25/19 Range/Units 18: 00:41 07:15 Glucose 202 H (74-99) mg/dL POC Glucose (mg/dL) 156 H (75-99) mg/dL Ur Specific [place] >1.050 H (1.001-1.035) Urine Protein Trace H (Negative) Urine Glucose (UA) 4+ H (Negative) 09/25/19 Range/Units 11:06 Glucose (74-99) mg/dL POC Glucose (mg/dL) 135 H (75-99) mg/dL Ur Specific [place] (1.001-1.035) Urine Protein (Negative) Urine Glucose (UA) (Negative) Diabetes panel 09/24/19 Range/Units 18:19 Sodium 138 (137-145) mmol/L Potassium 4.7 (3.5-5.1) mmol/L Chloride 102 (98-107) mmol/L Carbon Dioxide 25 (22-30) mmol/L BUN 13 (9-20) mg/dL Creatinine 0.99 (0.66-1.25) mg/dL Glucose 202 H (74-99) mg/dL Calcium 10.0 (8.4-10.2) mg/dL AST 26 (17-59) U/L ALT 35 (4-49) U/L Alkaline Phosphatase 80 (38-126) U/L Total Protein 7.9 (6.3-8.2) g/dL Albumin 4.9 (3.5-5.0) g/dL Calcium panel 09/24/19 Range/Units 18:19 Calcium 10.0 (8.4-10.2) mg/dL Albumin 4.9 (3.5-5.0) g/dL Pituitary panel 09/24/19 Range/Units 18:19 Sodium 138 (137-145) mmol/L Potassium 4.7 (3.5-5.1) mmol/L Chloride 102 (98-107) mmol/L Carbon Dioxide 25 (22-30) mmol/L BUN 13 (9-20) mg/dL Creatinine 0.99 (0.66-1.25) mg/dL Glucose 202 H (74-99) mg/dL Calcium 10.0 (8.4-10.2) mg/dL Adrenal panel 09/24/19 Range/Units 18:19 Sodium 138 (137-145) mmol/L Potassium 4.7 (3.5-5.1) mmol/L Chloride 102 (98-107) mmol/L Carbon Dioxide 25 (22-30) mmol/L BUN 13 (9-20) mg/dL Creatinine 0.99 (0.66-1.25) mg/dL Glucose 202 H (74-99) mg/dL Calcium 10.0 (8.4-10.2) mg/dL Total Bilirubin 0.8 (0.2-1.3) mg/dL AST 26 (17-59) U/L ALT 35 (4-49) U/L Alkaline Phosphatase 80 (38-126) U/L Total Protein 7.9 (6.3-8.2) g/dL Albumin 4.9 (3.5-5.0) g/dL <Patrick Alston - Last Filed: 09/25/19 13:39> History of Present Illness History of present illness: as above. Patient with enteritis. Doing better at this time. Advance to full liquids. Will follow with you. Surgical - Exam Vital Signs Temp Pulse Resp BP Pulse Ox 97.6 F 99 20 137/85 98 09/24/19 17:34 09/24/19 17:34 09/24/19 17:34 09/24/19 17:34 09/24/19 17:34 Results - Labs 09/24/19 18:19 09/24/19 18:19 Abnormal Lab Results - Last 24 Hours (Table) 09/24/19 09/25/19 09/25/19 Range/Units 18:19 00:41 07:15 Glucose 202 H (74-99) mg/dL POC Glucose (mg/dL) 156 H (75-99) mg/dL Ur Specific [place] >1.050 H (1.001-1.035) Urine Protein Trace H (Negative) Urine Glucose (UA) 4+ H (Negative) 09/25/19 Range/Units 11:06 Glucose (74-99) mg/dL POC Glucose (mg/dL) 135 H (75-99) mg/dL Ur Specific [place] (1.001-1.035) Urine Protein (Negative) Urine Glucose (UA) (Negative) Diabetes panel 09/24/19 Range/Units 18:19 Sodium 138 (137-145) mmol/L Potassium 4.7 (3.5-5.1) mmol/L Chloride 102 (98-107) mmol/L Carbon Dioxide 25 (22-30) mmol/L BUN 13 (9-20) mg/dL Creatinine 0.99 (0.66-1.25) mg/dL Glucose 202 H (74-99) mg/dL Calcium 10.0 (8.4-10.2) mg/dL AST 26 (17-59) U/L ALT 35 (4-49) U/L Alkaline Phosphatase 80 (38-126) U/L Total Protein 7.9 (6.3-8.2) g/dL Albumin 4.9 (3.5-5.0) g/dL Calcium panel 09/24/19 Range/Units 18:19 Calcium 10.0 (8.4-10.2) mg/dL Albumin 4.9 (3.5-5.0) g/dL Pituitary panel 09/24/19 Range/Units 18:19 Sodium 138 (137-145) mmol/L Potassium 4.7 (3.5-5.1) mmol/L Chloride 102 (98-107) mmol/L Carbon Dioxide 25 (22-30) mmol/L BUN 13 (9-20) mg/dL Creatinine 0.99 (0.66-1.25) mg/dL Glucose 202 H (74-99) mg/dL Calcium 10.0 (8.4-10.2) mg/dL Adrenal panel 09/24/19 Range/Units 18:19 Sodium 138 (137-145) mmol/L Potassium 4.7 (3.5-5.1) mmol/L Chloride 102 (98-107) mmol/L Carbon Dioxide 25 (22-30) mmol/L BUN 13 (9-20) mg/dL Creatinine 0.99 (0.66-1.25) mg/dL Glucose 202 H (74-99) mg/dL Calcium 10.0 (8.4-10.2) mg/dL Total Bilirubin 0.8 (0.2-1.3) mg/dL AST 26 (17-59) U/L ALT 35 (4-49) U/L Alkaline Phosphatase 80 (38-126) U/L Total Protein 7.9 (6.3-8.2) g/dL Albumin 4.9 (3.5-5.0) g/dL
--- NOTE | 2019-09-25 16:19 | P.HPIM ---
History of Present Illness H&P Date: 09/25/19 Chief Complaint: Abdominal pain and distention 49-year-old male, with past medical history of diabetes and hypertension, presenting to the emergency department complaints of abdominal pain since yesterday. Patient describes the pain as achy, pressure in the mid abdomen, left side of abdomen. Patient does admit to mild nausea, no vomiting, no diarrhea. Patient denies previous abdominal surgeries. Patient had a bowel movement this morning and was normal. Patient states the pain has been increasing over today so decided to come in. Patient admits when he lays down and the pain improves. Patient states when he was up and working today the pain intensified. Patient also has been belching a lot today. Patient has not tried to take anything for this. Patient has no other complaints at this time. Upon arrival to the ER, his vital signs are stable. Patient's workup in ED with an abdominal x-ray was positive for small bowel obstruction; patient is admitted to the hospital for further evaluation Review of Systems REVIEW OF SYSTEMS: CONSTITUTIONAL: No fever, no malaise, no fatigue. HEENT: No recent visual problems or hearing problems. Denied any sore throat. CARDIOVASCULAR: No chest pain, orthopnea, PND, no palpitations, no syncope. PULMONARY: No shortness of breath, no cough, no hemoptysis. GASTROINTESTINAL: No diarrhea, no nausea, no vomiting, no abdominal pain. NEUROLOGICAL: No headaches, no weakness, no numbness. HEMATOLOGICAL: Denies any bleeding or petechiae. GENITOURINARY: Denies any burning micturition, frequency, or urgency. MUSCULOSKELETAL/RHEUMATOLOGICAL: Denies any joint pain, swelling, or any muscle pain. ENDOCRINE: Denies any polyuria or polydipsia. The rest of the 14-point review of systems is negative. Past Medical History Past Medical History: Diabetes Mellitus History of Any Multi-Drug Resistant Organisms: None Reported Additional Past Surgical History / Comment(s): Vasectomy 2016 Past Psychological History: No Psychological Hx Reported Smoking Status: Former smoker Past Alcohol Use History: None Reported Past Drug Use History: None Reported Medications and Allergies Home Medications Medication Instructions Recorded Confirmed Type Atorvastatin Calcium [Lipitor] 40 mg PO DAILY 09/11/18 09/24/19 History Omeprazole 20 mg PO HS 09/11/18 09/24/19 History Tadalafil [Cialis] 5 mg PO HS 09/11/18 09/24/19 History metFORMIN HCL 1,000 mg PO BID 09/11/18 09/24/19 History Empagliflozin [Jardiance] 25 mg PO DAILY 09/24/19 09/24/19 History Insulin Glargine,Hum.rec.anlog 32 units SQ HS 09/24/19 09/24/19 History [Toujeo Solostar] Lisinopril [Zestril] 2.5 mg PO DAILY 09/24/19 09/24/19 History Allergies Allergy/AdvReac Type Severity Reaction Status Date / Time No Known Allergies Allergy Verified 09/24/19 22:42 Physical Exam Vitals: Vital Signs Temp Pulse Pulse Resp BP BP Pulse Ox 09/25/19 07:00 97.7 F 72 15 104/66 97 09/25/19 04:00 15 09/25/19 00:40 97.6 F 74 15 111/74 96 09/24/19 22:54 97.9 F 76 18 125/86 97 09/24/19 18:50 119/85 95 09/24/19 18:40 119/85 97 09/24/19 18:36 20 98 09/24/19 18:30 104/81 96 09/24/19 18:20 104/81 96 09/24/19 18:10 104/81 96 09/24/19 18:00 125/88 95 09/24/19 17:50 125/88 95 09/24/19 17:44 95 09/24/19 17:36 20 137/85 98 09/24/19 17:34 97.6 F 99 20 137/85 98 Intake and Output 09/24/19 09/25/19 09/25/19 22:59 06:59 14:59 Other: Voiding Method Toilet Weight 90.718 kg 90.718 kg PHYSICAL EXAMINATION: GENERAL: The patient is alert and oriented x3, not in any acute distress. Well developed, well nourished. HEENT: Pupils are round and equally reacting to light. EOMI. No scleral icterus. No conjunctival pallor. Normocephalic, atraumatic. No pharyngeal erythema. No thyromegaly. CARDIOVASCULAR: S1 and S2 present. No murmurs, rubs, or gallops. PULMONARY: Chest is clear to auscultation, no wheezing or crackles. ABDOMEN: Soft, marked epigastric tenderness, moderate distention, normoactive bowel sounds. No palpable organomegaly. MUSCULOSKELETAL: No joint swelling or deformity. EXTREMITIES: No cyanosis, clubbing, or pedal edema. NEUROLOGICAL: Gross neurological examination did not reveal any focal deficits. SKIN: No rashes. Results CBC & Chem 7: 09/24/19 18:19 09/24/19 18:19 Labs: Abnormal Lab Results - Last 24 Hours (Table) 09/24/19 09/25/19 09/25/19 Range/Units 18:19 00:41 07:15 Glucose 202 H (74-99) mg/dL POC Glucose (mg/dL) 156 H (75-99) mg/dL Ur Specific [place] >1.050 H (1.001-1.035) Urine Protein Trace H (Negative) Urine Glucose (UA) 4+ H (Negative) 09/25/19 Range/Units 11:06 Glucose (74-99) mg/dL POC Glucose (mg/dL) 135 H (75-99) mg/dL Ur Specific [place] (1.001-1.035) Urine Protein (Negative) Urine Glucose (UA) (Negative) Thrombosis Risk Factor Assmnt - Choose All That Apply Each Factor Represents 1 point: Age 41-60 years Other Risk Factors: No Other congenital or acquired thrombophilia - If yes, enter type in comment: No Thrombosis Risk Factor Assessment Total Risk Factor Score: 1 Thrombosis Risk Factor Assessment Level: Low Risk Assessment and Plan Assessment: 1. Intractable abdominal pain; possible peptic ulcer disease versus acute gastritis - Patient is started on clear liquid diet and was advanced as tolerated; start patient on IV Protonix 40 mg twice a day; we will monitor closely and possibly start patient on Reglan if no change in her home pain 2. Small bowel obstruction; Gen. surgery is consulted and patient has been started on clear liquid diet; we will recommend serial abdominal exams 3. Hyperglycemia; diabetes mellitus type 1; we will hold off on long-acting insulin along with metformin and Giardia and's; we will monitor Accu-Cheks every before meals and at bedtime with insulin sliding scale till oral intake is established 4. Hyperlipidemia; continue with home statin therapy 5. Hypertension; stable on home dose of Zestril 2.5 mg daily 6. DVT prophylaxis; SCDs CODE STATUS; full code Time with Patient: Greater than 30
[2019-09-25 17:21] LABS: Glucose,Whole Blood 375 mg/dL (75-99)
[2019-09-25] MEDS: INSULIN ASPART (NovoLOG) 100 UNIT/ML VIAL SQ SCH ×2 (18:09→20:39)
[2019-09-25 20:30] LABS: Glucose,Whole Blood 168 mg/dL (75-99)
[2019-09-25] MEDS ORDERED: metFORMIN 500 MG TAB PO SCH (21:00)
[2019-09-25] MEDS ORDERED: INSULIN DETEMIR (LEVEMIR) 100 UNIT/ML SYR SQ SCH (21:00)
[2019-09-26 06:57] LABS: Basophils % (A) 1 %; Eosinophils # (A) 0.1 k/uL (0-0.7); Eosinophils % (A) 4 %; HCT 40.3 % (39.0-53.0); HGB 13.9 gm/dL (13.0-17.5); Lymphocytes # (A) 1.2 k/uL (1.0-4.8); Lymphocytes % (A) 32 %; MCH 28.9 pg (25.0-35.0); MCHC 34.6 g/dL (31.0-37.0); MCV 83.5 fL (80.0-100.0); Mean Platelet Volume 6.8; Monocytes # (A) 0.2 k/uL (0-1.0); Monocytes % (A) 6 %; Neutrophils % (A) 55 %; Platelet Count 197 k/uL (150-450); RBC 4.82 m/uL (4.30-5.90); RDW 13.3 % (11.5-15.5); WBC 3.7 k/uL (3.8-10.6)
[2019-09-26 07:09] LABS: African American GFR (CKD) >90 (>60 ml/min/1.73 sqM); Anion Gap 8 mmol/L; Blood Urea Nitrogen 11 mg/dL (9-20); Calcium 8.6 mg/dL (8.4-10.2); Carbon Dioxide 25 mmol/L (22-30); Chloride 107 mmol/L (98-107); Glucose 138 mg/dL (74-99); Non-African American GFR(CKD) >90 (>60 ml/min/1.73 sqM); Potassium 3.9 mmol/L (3.5-5.1); Sodium 140 mmol/L (137-145)
[2019-09-26 07:19] LABS: Glucose,Whole Blood 139 mg/dL (75-99)
[2019-09-26] MEDS: LISINOPRIL 2.5 MG TAB PO SCH ×2 (07:39→07:47)
[2019-09-26] MEDS: INSULIN ASPART (NovoLOG) 100 UNIT/ML VIAL SQ SCH ×3 (07:39→17:33)
[2019-09-26] MEDS: PANTOPRAZOLE 40 MG/10 ML VIAL IVP SCH (07:45)
[2019-09-26] MEDS ORDERED: ATORVASTATIN 40 MG TAB PO SCH (09:00)
--- NOTE | 2019-09-26 10:34 | P.PN ---
Subjective Progress Note Date: 09/26/19 Principal diagnosis: Abdominal pain Patient was doing better up until yesterday evening when he began expensing pain and bloating once again. Pain is periumbilical. He did have a bowel movement which was loose. Some nausea but no vomiting. White blood cell count 3.7 today. He is afebrile. He has been taking Prilosec daily prior to admission. Objective - Vital Signs Vital signs: Vital Signs Temp 97.8 F 09/26/19 07:00 Pulse 67 09/26/19 07:00 Resp 18 09/26/19 07:00 BP 120/79 09/26/19 07:00 Pulse Ox 90 L 09/26/19 07:00 Intake & Output 09/25/19 09/26/19 09/26/19 18:59 06:59 18:59 Intake Total 1050 1040 236 Balance 1050 1040 236 Intake: Intake, IV Titration 800 Amount Sodium Chloride 0.9% 1, 800 000 ml @ 100 mls/hr IV . Q10H ONE Rx#:[id number] Oral 1050 240 236 Other: Voiding Method Toilet Toilet # Voids 2 1 - Exam Abdomen: Soft, mild distention, mild tenderness, no rebound or guarding - Labs CBC & Chem 7: 09/26/19 06:13 09/26/19 06:13 Labs: Abnormal Lab Results - Last 24 Hours (Table) 09/25/19 09/25/19 09/25/19 Range/Units 11:06 17:09 20:17 WBC (3.8-10.6) k/uL Glucose (74-99) mg/dL POC Glucose (mg/dL) 135 H 375 H 168 H (75-99) mg/dL 09/26/19 09/26/19 09/26/19 Range/Units 06:13 06:13 07:08 WBC 3.7 L (3.8-10.6) k/uL Glucose 138 H (74-99) mg/dL POC Glucose (mg/dL) 139 H (75-99) mg/dL Assessment and Plan (1) Abdominal pain Narrative/Plan: 49-year-old male with mid abdominal discomfort. Suspect enteritis. Check abdominal x-rays today. Repeat labs. Continue low fiber diet. Current Visit: Yes Status: Acute Code(s): R10.9 - UNSPECIFIED ABDOMINAL PAIN SNOMED Code(s): 23397958
--- NOTE | 2019-09-26 11:32 | XR ---
EXAMINATION TYPE: XR abdomen 2V , 3 VIEWS DATE OF EXAM ORDERED: 09/26/2019 HISTORY: Evaluate ileus. COMPARISON: Previous study dated 09/24/2019. FINDINGS: Lung bases are clear. Within the abdomen, the overall appearance is improved. There is no dilated small bowel in the longer . No air-fluid levels are seen. No unusual calcifications are seen. IMPRESSION: MUCH IMPROVED SMALL BOWEL ILEUS.
[2019-09-26 12:34] LABS: Glucose,Whole Blood 225 mg/dL (75-99)
[2019-09-26] MEDS ORDERED: SIMETHICONE 80 MG CHEWABLE PO SCH (13:00)
[2019-09-26 14:18] LABS: Hemoglobin A1C 9.8 % (4.0-6.0)
[2019-09-26 14:48] VITALS: BP 133/83; PULSE 74; RESP 16; TEMP 97.6
[2019-09-26 17:14] LABS: Glucose,Whole Blood 235 mg/dL (75-99)
== END 2019-09-26 20:00 | disposition home or self-care (01) | DRG 392 ==
LOC: EC 17:29 → 4SSUR 09-25 00:03
PROVIDERS: ADMIT Hospitalist; ATTEND Hospitalist
DX: K52.9 Noninfective gastroenteritis and colitis, unspecified (principal); E11.65 Type 2 diabetes mellitus with hyperglycemia; E78.5 Hyperlipidemia, unspecified; F17.200 Nicotine dependence, unspecified, uncomplicated; I10 Essential (primary) hypertension; Z79.4 Long term (current) use of insulin; Z79.899 Other long term (current) drug therapy
CPT/HCPCS: 36415; 74018; 74019; 74177; 80048; 80053; 81003; 82150; 83036; 83690; 85025; 85610; 85730; 96361; 96374; 96375; 99285

== ENCOUNTER → 2020-08-10 | Outpatient (CLI) | payer MEDICAID ==
--- NOTE | 2020-08-10 12:00 | ECHOF ---
Referral Reason:R07.1 Cardiac murmur MEASUREMENTS -------- HEIGHT: 170.2 cm WEIGHT: 81.6 kg BP: RVIDd: 2.4 cm (< 3.3) IVSd: 1.2 cm (0.6 - 1.1) LVIDd: 3.7 cm (3.9 - 5.3) LVPWd: 1.1 cm (0.6 - 1.1) IVSs: 1.4 cm LVIDs: 3.1 cm LVPWs: 1.4 cm LA Diam: 3.2 cm (2.7 - 3.8) LAESV Index (A-L): 24.39 ml/m Ao Diam: 3.5 cm (2.0 - 3.7) AV Cusp: 2.2 cm (1.5 - 2.6) LA Diam: 3.6 cm (2.7 - 3.8) MV EXCURSION: 10.342 mm (> 18.000) MV EF SLOPE: 45 mm/s (70 - 150) EPSS: 0.7 cm MV E Reinaldo: 0.66 m/s MV DecT: 198 ms MV A Reinaldo: 0.75 m/s MV E/A Ratio: 0.89 RAP: 5.00 mmHg RVSP: 13.01 mmHg FINDINGS -------- Sinus rhythm. This was a technically good study. LV size, wall thickness and systolic function are normal, with an EF greater than 55%. The left roney tricular size is normal. The right ventricle is normal in size. The left atrial size is normal. Normal LA size by volume 22+/-6 ml/m2. The right atrial size is normal. The aortic valve is trileaflet, and appears structurally normal. No aortic stenosis or regurgitation. Mild mitral regurgitation is present. Mild tricuspid regurgitation present. Right ventricular systolic pressure is normal at < 35 mmHg. There is no pulmonic regurgitation present. The aortic root size is normal. There is no pericardial effusion. CONCLUSIONS -------- 1. LV size, wall thickness and systolic function are normal, with an EF greater than 55%. 2. The left ventricular size is normal. 3. The right ventricle is normal in size. 4. The left atrial size is normal. 5. Normal LA size by volume 22+/-6 ml/m2. 6. The right atrial size is normal. 7. Mild mitral regurgitation is present. 8. Mild tricuspid regurgitation present. 9. The aortic root size is normal. 10. There is no pericardial effusion. ELECTRO MECH[employer]ICAL ASSEMBLER: Scarlett Herr RDCS
== END | disposition home or self-care (01) ==
LOC: RADECHMAIN 10:36
PROVIDERS: ATTEND Internal Medicine Endocrinology, Diabetes & Metabolism
DX: I08.1 Rheumatic disorders of both mitral and tricuspid valves (principal)
CPT/HCPCS: 93306

== ENCOUNTER 2021-04-03 07:21 | Day surgery (SDC) | payer MEDICAID ==
[2021-03-29 15:13] VITALS: BMI 27.8
[~2021-04-03 07:21] MED LIST: LACTATED RINGERS 1,000 ML IV SCH
[2021-04-03 07:37] VITALS: TEMP 97.7
[2021-04-03] MEDS ORDERED: LACTATED RINGERS 1,000 ML IV ONE (07:37)
[2021-04-03 07:44] LABS: Glucose,Whole Blood 149 mg/dL (75-99)
[2021-04-03] MEDS ORDERED: PROPOFOL 10 MG/ML 20 ML VIAL IV ONE (08:15)
[2021-04-03] MEDS ORDERED: LIDOCAINE 1% INJ 10MG/ML (20 ML MDV) ONE (08:15)
--- NOTE | 2021-04-03 08:34 | P.PCN ---
Date of Procedure: 04/03/21 Description of Procedure: BRIEF HISTORY: Patient is a 51-year-old male presenting for outpatient esophagogastroduodenoscopy for evaluation of GERD. Patient reports a long- standing history of reflux ease. Previously on omeprazole once daily this was increased to twice daily due to frequent breakthrough symptoms. He reports random triggers of his reflux. PROCEDURE PERFORMED: Esophagogastroduodenoscopy with biopsy. PREOPERATIVE DIAGNOSIS: GERD, heartburn. ESTIMATED BLOOD LOSS: Minimal. IV sedation per anesthesia. PROCEDURE: After informed consent was obtained, the patient was brought into the endoscopy unit. IV sedation was administered by Anesthesia under continuous monitoring. Initially the Olympus GIF-190 video endoscope was inserted into the mouth. Esophagus intubated without any difficulty. It was gradually advanced into the stomach and duodenum and carefully examined. The bulb and the second part of the duodenum appeared normal, with biopsies taken. The scope at this time was withdrawn to the stomach, adequately insufflated with air, and upon careful examination, mucosa of the antrum, body, cardia and the fundus appeared normal, with some mild punctate erythema in the antrum and body suggestive of mild gastritis. The scope was then withdrawn into the esophagus. The GE junction was located at 39 cm from the incisors, with 2 short tongues of salmon-colored mucosa suggestive of Mcgraw's esophagus with biopsies of the lower esophagus and midesophagus taken. The esophagus appeared normal. There were no erosions or ulcerations seen and the patient tolerated the procedure well. IMPRESSION: 1. Mild gastritis. 2. Suspected Mcgraw's esophagus. 3. Biopsies of the duodenum, antrum and body, lower esophagus and midesophagus. RECOMMENDATIONS: The findings of this examination were discussed with the patient and his family. Okay to resume diet. Okay to resume medications. If diagnosis of Mcgraw's esophagus is confirmed patient should remain on PPI therapy indefinitely and have a repeat esophagogastroduodenoscopy in 2 years which has been discussed with the patient at length with all his questions answered to his satisfaction. Await pathology from biopsies.
[2021-04-03 09:09] VITALS: BP 120/84; PULSE 82; RESP 20
== END 2021-04-03 09:05 | disposition home or self-care (01) ==
LOC: ORWHC2ENDO 07:21
PROVIDERS: ATTEND Internal Medicine
DX: K29.50 Unspecified chronic gastritis without bleeding (principal); K21.00 Gastro-esophageal reflux disease with esophagitis, without bleeding; Z72.0 Tobacco use; Z79.899 Other long term (current) drug therapy; Z98.890 Other specified postprocedural states; E78.5 Hyperlipidemia, unspecified; E11.9 Type 2 diabetes mellitus without complications; Z97.2 Presence of dental prosthetic device (complete) (partial)
CPT/HCPCS: 88305; 43239; J2001; J2704

== ENCOUNTER 2025-03-03 11:04 | Emergency (ER) | payer MEDICAID ==
[2025-03-03 12:08] LABS: Basophils # (A) 0.01 10*3/uL (0.00-0.10); Basophils % (A) 0.2 %; HCT 44.8 % (39.6-50.0); HGB 15.6 g/dL (13.0-17.0); Lymphocytes # (A) 0.17 10*3/uL (0.90-5.00); Lymphocytes % (A) 2.7 %; MCH 29.7 pg (27.0-32.0); MCHC 34.8 g/dL (32.0-37.0); MCV 85.3 fL (80.0-97.0); Mean Platelet Volume 8.7 fL (9.5-12.2); Monocytes # (A) 0.27 10*3/uL (0.20-1.00); Monocytes % (A) 4.3 %; Neutrophils # (A) 5.75 10*3/uL (1.80-7.70); Neutrophils % (A) 92.6 %; Platelet Count 129 10*3/uL (140-440); RBC 5.25 10*6/uL (4.40-5.60); RDW 13.2 % (11.5-14.5); WBC 6.21 10*3/uL (4.50-10.00)
--- NOTE | 2025-03-03 12:17 | XR ---
EXAMINATION TYPE: XR chest 2V DATE OF EXAM: 03/03/2025 CLINICAL INDICATION: Male, 54 years old with history of Chest Pain, TECHNIQUE: Frontal and lateral views of the chest are obtained. COMPARISON: Chest x-ray 2018 FINDINGS: There is no focal air space opacity, pleural effusion, or pneumothorax seen. The cardiac silhouette size is mildly enlarged. Overlying EKG leads are present. The osseous structures are inta ct. IMPRESSION: Mild cardiomegaly without acute pulmonary process. [facility], , 03/03/2025 12:14 PM
[2025-03-03 12:23] LABS: ALT 25 U/L (4-49); AST 26 U/L (17-59); African American GFR (CKD) >90 (>60 ml/min/1.73 sqM); Albumin 4.5 g/dL (3.5-5.0); Alkaline Phosphatase 73 U/L (38-126); Anion Gap 15 mmol/L; Blood Urea Nitrogen 19 mg/dL (9-20); Carbon Dioxide 24 mmol/L (22-30); Chloride 99 mmol/L (98-107); Glucose 229 mg/dL (74-99); Magnesium 1.8 mg/dL (1.6-2.3); Non-African American GFR(CKD) 84 (>60 ml/min/1.73 sqM); Potassium 4.3 mmol/L (3.5-5.1); Sodium 138 mmol/L (137-145); Total Bilirubin 1.2 mg/dL (0.2-1.3)
--- NOTE | 2025-03-03 12:26 | ED ---
Chest Pain HPI - General Chief Complaint: Chest Pain Stated Complaint: Passed Out and Fall/ Chest and Head Pain Time Seen by Provider: 03/03/25 11:30 Source: patient, family, RN notes reviewed Mode of arrival: wheelchair Limitations: no limitations - History of Present Illness Initial Comments: 54-year-old male presents emergency department chief complaint of syncopal episode, chest pain. Patient states that he got up melanite to the bathroom states that he urinated and then woke up on the ground. Patient states that he had this happen before. He believes he struck his head., States that he believes he hit his chest causing his chest discomfort. Chest pain is improved. Patient denies any nausea vomiting fevers or chills. Patient states he denies any prior cardiac disease has a history of diabetes oral medication states checked his blood sugar was not low. - Related Data Home Medications Medication Instructions Recorded Confirmed Atorvastatin Calcium [Lipitor] 40 mg PO DAILY 09/11/18 03/03/25 Omeprazole 20 mg PO BID 09/11/18 03/03/25 metFORMIN HCL ER [Glucophage XR] 500 mg PO DAILY 11/12/22 03/03/25 Empagliflozin [Jardiance] 25 mg PO DAILY 03/03/25 03/03/25 Pioglitazone [Actos] 30 mg PO HS 03/03/25 03/03/25 metFORMIN HCL ER [Glucophage XR] 1,000 mg PO HS 03/03/25 03/03/25 Allergies Allergy/AdvReac Type Severity Reaction Status Date / Time No Known Allergies Allergy Verified 03/03/25 14:33 Review of Systems ROS Statement: Those systems with pertinent positive or pertinent negative responses have been documented in the HPI. ROS Other: All systems not noted in ROS Statement are negative. EKG Findings - EKG Comments: EKG Findings:: EKG performed at 11: 26 sinus rhythm rate of 91 MA 171 QRS 98 QT/QTc 356/405 - EKG Results: EKG: interpreted by CAILIN Past Medical History Past Medical History: Diabetes Mellitus History of Any Multi-Drug Resistant Organisms: None Reported Additional Past Surgical History / Comment(s): Vasectomy 2016 Past Anesthesia/Blood Transfusion Reactions: No Reported Reaction, Motion Sickness Past Psychological History: No Psychological Hx Reported Smoking Status: Former smoker General Exam Limitations: no limitations General appearance: alert, in no apparent distress Head exam: Present: atraumatic, normocephalic, normal inspection Eye exam: Present: normal appearance, PERRL, EOMI. Absent: scleral icterus, conjunctival injection, periorbital swelling ENT exam: Present: normal exam, normal oropharynx, mucous membranes moist Neck exam: Present: normal inspection, full ROM. Absent: tenderness, meningismus, lymphadenopathy Respiratory exam: Present: normal lung sounds bilaterally. Absent: respiratory distress, wheezes, rales, rhonchi, stridor Cardiovascular Exam: Present: regular rate, normal rhythm, normal heart sounds. Absent: systolic murmur, diastolic murmur, rubs, gallop, clicks GI/Abdominal exam: Present: soft, normal bowel sounds. Absent: distended, tenderness, guarding, rebound, rigid Neurological exam: Present: alert, oriented X3, CN II-XII intact, reflexes normal. Absent: motor sensory deficit Course Vital Signs 03/03/25 03/03/25 03/03/25 11:07 13:00 13:27 Temperature 98.2 F 101.2 F H Pulse Rate 97 96 Respiratory 18 18 Rate Blood Pressure 123/74 111/69 O2 Sat by Pulse 97 99 Oximetry 03/03/25 15:00 Temperature Pulse Rate 97 Respiratory 16 Rate Blood Pressure 100/64 O2 Sat by Pulse 96 Oximetry Chest Pain MDM - MDM Was pt. sent in by a medical professional or institution ([facility]LL[facility] Garcia, HEARING CONSULTANT, urgent care, hospital, or custodial...) When possible be specific @ -No Did you speak to anyone other than the patient for history (EMS, parent, family, police, friend...)? What history was obtained from this source @ -No Did you review nursing and triage notes (agree or disagree)? Why? @ -I reviewed and agree with nursing and triage notes Were old charts reviewed (outside hosp., previous admission, EMS record, old EKG, old radiological studies, urgent care reports/EKG's, custodial records)? Report findings @ -No old charts were reviewed Differential Diagnosis (chest pain, altered mental status, abdominal pain women, abdominal pain men, vaginal bleeding, weakness, fever, dyspnea, syncope, headache, dizziness, GI bleed, back pain, seizure, CVA, palpatations, mental health, musculoskeletal)? @ -Differential Syncope: Valvular disease, hypertrophic cardiomyopathy, pulmonary embolism, tamponade, tachycardia, bradycardia, CA, hypovolemia, hemorrhage, dissection, anemia, intracranial hemorrhage, seizure, hypoglycemia, carbon monoxide poisoning, this is not meant to be an all-inclusive list. EKG interpreted by me (3pts min.). @ -As above X-rays interpreted by me (1pt min.). @ -Chest x-ray shows no acute cardiopulmonary process. CT interpreted by me (1pt min.). @ -CT brain showing no acute intracranial hemorrhage, mass effect U/S interpreted by me (1pt. min.). @ -None done What testing was considered but not performed or refused? (CT, X-rays, U/S, labs)? Why? @ -None What meds were considered but not given or refused? Why? @ -None Did you discuss the management of the patient with other professionals (professionals i.e. , PA, HEARING CONSULTANT, lab, RT, psych nurse, nursing home social worker, county library director, teacher, fare enforcement officer, rehabilitation case coordinator)? Give summary @ -No Was smoking cessation discussed for >3mins.? @ -No Was critical care preformed (if so, how long)? @ -No Were there social determinants of health that impacted care today? How? (Homelessness, low income, unemployed, alcoholism, drug addiction, transportation, low edu. Level, literacy, decrease access to med. care, senior living, rehab)? @ -No Was there de-escalation of care discussed even if they declined (Discuss DNR or withdrawal of care, Hospice)? DNR status @ -No What co-morbidities impacted this encounter? (DM, HTN, Smoking, COPD, CAD, Cancer, CVA, ARF, Chemo, Hep., AIDS, mental health diagnosis, sleep apnea, morbid obesity)? @ -[Diabetes Was patient admitted / discharged? Hospital course, mention meds given and route, prescriptions, significant lab abnormalities, going to OR and other pertinent info. @ -Did charge patient presented for syncopal episode, generalized not feeling well, feeling weak initial workup including labs EKG troponin D-dimer negative patient did have CT brain given significant headache, severe headache and syncope this was negative. Patient developed fever while in the emergency department without clear source. Given nature of syncope, and right chest comfort, fever patient was offered admission patient declined states he is close follow-up and understands risk of leaving. Undiagnosed new problem with uncertain prognosis? @ -No Drug Therapy requiring intensive monitoring for toxicity (Heparin, Nitro, Insulin, Cardizem)? @ -No Were any procedures done? @ -No Diagnosis/symptom? @ -Syncope, fever, viral infection Acute, or Chronic, or Acute on Chronic? @ -[Acute Uncomplicated (without systemic symptoms) or Complicated (systemic symptoms)? @ -Complicated Side effects of treatment? @ -No Exacerbation, Progression, or Severe Exacerbation? @ -No Poses a threat to life or bodily function? How? (Chest pain, [place], CA, pneumonia, PE, COPD, DKA, ARF, appy, cholecystitis, CVA, Diverticulitis, Homicidal, Suicidal, threat to staff... and all critical care pts) @ -[Yes syncope, risk cardiac function Disposition Clinical Impression: Syncope, Viral infection Disposition: HOME SELF-CARE Condition: Stable Instructions (If sedation given, give patient instructions): Syncope (ED) Additional Instructions: Please return to the Emergency Department if symptoms worsen or any other concerns. Is patient prescribed a controlled substance at d/c from ED?: No Referrals: Lopez Garay DO [Primary Care Provider] - 1-2 days Time of Disposition: 15:58
[2025-03-03 12:31] LABS: NT-Pro-B-Type Natriuretic Pept <20 pg/mL
[2025-03-03 12:34] LABS: Partial Thromboplastin Time 23.1 sec (22.0-30.0); Prothrombin Time 11.2 sec (10.0-12.5)
--- NOTE | 2025-03-03 13:21 | CT ---
EXAMINATION TYPE: CT brain wo con DATE OF EXAM: 03/03/2025 COMPARISON: None CLINICAL INDICATION: Male, 54 years old with history of syncope, head trauma; PHH, SYNCOPE, POSITIVE LOC CT DLP: 1079.9 mGycm Automated exposure control for dose reduction was used. Findings: The ventricles, basal cisterns and sulci over the convexities are within normal limits for the patien t's age and there is no mass effect or shift of midline structures. No abnormal density is seen throughout the brain parenchyma and there is no acute intra or extra-axia l hemorrhage. The posterior fossa including the brainstem, fourth ventricle and cerebellar pontine angles appear no rmal. Intraorbital contents appear normal and symmetric. Visualized paranasal sinuses and mastoid air cells are well aerated. The calvarium is intact. IMPRESSION: No significant abnormality seen. There is no acute bleed or mass effect. [facility], , 03/03/2025 1:19 PM
[2025-03-03] MEDS: ACETAMINOPHEN TAB 500 MG TAB PO STA (14:32)
[2025-03-03] MEDS: KETOROLAC 15 MG/ML 1 ML VIAL IVP STA (14:32)
[2025-03-03 15:13] VITALS: RESP 16
[2025-03-03 15:42] LABS: Influenza A Not Detected (Not Detectd); Influenza B Not Detected (Not Detectd); RSV Not Detected (Not Detectd)
[2025-03-03 15:49] LABS: Appearance,Urine Clear (Clear); Bilirubin,Urine Negative (Negative); Blood,Urine Negative (Negative); Color,Urine Light Yellow; Glucose,Urine (UA) 4+ (Negative); Ketones,Urine 1+ (Negative); Leukocyte Esterase,Urine Negative (Negative); Nitrite,Urine Negative (Negative); PH, Urine 5.5 (5.0-8.0); Protein,Urine Negative (Negative); Specific Gravity,Urine 1.041 (1.001-1.035); Urobilinogen,Urine <2.0 mg/dL (<2.0)
[2025-03-03 16:05] VITALS: BP 105/63; PULSE 96; TEMP 98.5
== END 2025-03-03 16:11 | disposition home or self-care (01) ==
LOC: EC 11:04
DX: B34.9 Viral infection, unspecified (principal); R55 Syncope and collapse; E11.9 Type 2 diabetes mellitus without complications; Z79.84 Long term (current) use of oral hypoglycemic drugs; Z87.891 Personal history of nicotine dependence
CPT/HCPCS: 36415; 93005; 85379; 83880; 80053; 83735; 84484; 85025; 85610; 85730; 81003; 87636; 71046; 70450; 99285; 96374; J1885